=== PATIENT | female | born 1955 | race Asian ===

== ENCOUNTER 2021-05-04 09:04 | Outpatient (REF) | payer OTHER, SELFPAY ==
[2021-05-04 10:20] LABS: MANUAL DIFF FLAG NO
[2021-05-04 10:27] LABS: Basophils Percent Auto 0.5 % (0-2); Eosinophils Absolute Auto 0.2 X10*3/uL (0.0-0.4); Eosinophils Percent Auto 2.6 % (0-4); Hematocrit 41.4 % (37-47); Hemoglobin 14.2 g/dl (12.0-16.0); Imm Gran Abs Auto 0.01 X10*3/uL (0.00-0.03); Imm Gran Pct Auto 0.2 % (0.0-0.4); Lymphocytes Absolute Auto 2.6 X10*3/uL (1.2-4.9); Lymphocytes Percent Auto 42.2 % (20-40); Mean Corpuscular HGB Conc 34.3 g/dl (31.0-35.0); Mean Corpuscular Hemoglobin 31.4 pg (27.0-33.0); Mean Corpuscular Volume 91.6 fL (80-98); Mean Platelet Volume 10.6 fL (9.4-12.3); Monocytes Absolute Auto 0.4 X10*3/uL (0.1-1.2); Monocytes Percent Auto 6.3 % (2-11); Neutrophils Absolute Auto 2.9 X10*3/uL (2.0-8.3); Neutrophils Percent Auto 48.2 % (45-73); Platelet Count 180 X10*3/uL (160-400); Red Blood Count 4.52 X10*6/uL (4.20-5.50); Red Cell Distribution Width 11.5 % (11.0-16.0); White Blood Count 6.1 X10*3/uL (4.8-10.8)
[2021-05-04 10:42] LABS: Anion Gap 13 (12-20); Blood Urea Nitrogen 10 mg/dL (9-16); Calcium 9.5 mg/dL (8.4-10.2); Carbon Dioxide 27 mmol/L (22-29); Chloride 103 mmol/L (96-108); Cholesterol 235 mg/dL; Estimated Glomerular Filt Rate > 60; Glucose Fasting 113 mg/dL (60-99); HDL Cholesterol 44 mg/dL; Potassium 4.6 mmol/L (3.3-5.1); Sodium 138 mmol/L (135-145); Triglycerides 538 mg/dL
== END 2021-05-04 09:05 | disposition home or self-care (01) ==
LOC: HO.10HDL 09:04
PROVIDERS: Visit Provider Internal Medicine
DX: E78.00 Pure hypercholesterolemia, unspecified (principal); R03.0 Elevated blood-pressure reading, without diagnosis of hypertension
CPT/HCPCS: 36415; 80048; 80061; 85025

== ENCOUNTER 2021-08-10 11:25 | Outpatient (REF) | payer OTHER, SELFPAY ==
[2021-08-10 13:53] LABS: Alanine Aminotransferase 41 U/L (0-31); Albumin Level 4.4 g/dL (3.5-5.0); Alkaline Phosphatase 108 U/L (39-117); Anion Gap 12 (12-20); Aspartate Amino Transferase 26 U/L (5-31); Bilirubin Total 1.2 mg/dL (0.0-1.0); Blood Urea Nitrogen 10 mg/dL (9-16); Calcium 9.5 mg/dL (8.4-10.2); Carbon Dioxide 29 mmol/L (22-29); Chloride 103 mmol/L (96-108); Cholesterol 179 mg/dL; Estimated Glomerular Filt Rate > 60; Glucose Fasting 119 mg/dL (60-99); HDL Cholesterol 49 mg/dL; LDL Cholesterol Calculated 96 mg/dl; Potassium 4.3 mmol/L (3.3-5.1); Sodium 140 mmol/L (135-145); Total Protein 7.5 g/dL (6.5-8.0); Triglycerides 172 mg/dL
== END 2021-08-10 11:26 | disposition home or self-care (01) ==
LOC: HO.10HDL 11:25
PROVIDERS: Visit Provider Internal Medicine
DX: E78.5 Hyperlipidemia, unspecified (principal)
CPT/HCPCS: 36415; 80053; 80061; 82550; 83735

== ENCOUNTER 2021-08-13 10:16 | Outpatient (REF) | payer OTHER, SELFPAY ==
--- NOTE | ~2021-08-13 | XR_ITS ---
EXAMINATION: XR CERVICAL SPINE CLINICAL INFORMATION: Right-sided neck pain. Evaluate for osteoarthritis, degenerative disc disease. COMPARISON: None. TECHNIQUE: AP, lateral, open-mouth, bilateral oblique views of the cervical spine. FINDINGS: Mild reversal of the normal cervical lordosis. Grade 1 retrolisthesis of C4 on C5. No acute fracture. No loss of vertebral body height. Loss of intervertebral disc height with endplate osteophytes at C3-C7. Mild multilevel bilateral neural foraminal stenosis. Normal atlantoaxial alignment. Unremarkable prevertebral soft tissues. No abnormal soft tissue calcification. XR/XR cervical spine min 6V IMPRESSION: Mild reversal of the normal cervical lordosis, which may be positional or related to muscular spasm. Grade 1 retrolisthesis of C4 on C5. Moderate multilevel degenerative disc disease at C3-C7 with bilateral neural foraminal stenosis.
== END 2021-08-13 10:17 | disposition home or self-care (01) ==
LOC: HO.XRAY 10:16
PROVIDERS: PCP Internal Medicine; Visit Provider Internal Medicine
DX: M54.2 Cervicalgia (principal)
CPT/HCPCS: 72052

== ENCOUNTER 2022-05-10 13:14 | Outpatient (REF) | payer OTHER, SELFPAY ==
[2022-05-10 13:58] LABS: Influenza A PCR NEGATIVE (Negative); Influenza B PCR NEGATIVE (Negative); Resp Syncy Virus RNA Qual PCR NEGATIVE (Negative); SARS COV2 PCR INHOUSE NEGATIVE (Negative)
== END 2022-05-10 13:15 | disposition home or self-care (01) ==
LOC: HO.LNP 13:14
PROVIDERS: Visit Provider Internal Medicine
DX: Z20.822 Contact with and (suspected) exposure to COVID-19 (principal); R05.9 Cough, unspecified; J02.9 Acute pharyngitis, unspecified; R51.9 Headache, unspecified
CPT/HCPCS: 0241U

== ENCOUNTER 2022-10-15 07:35 | Outpatient (REF) | payer OTHER, SELFPAY ==
[2022-10-15 10:29] LABS: MANUAL DIFF FLAG NO
[2022-10-15 10:42] LABS: Basophils Percent Auto 0.4 % (0-2); Eosinophils Absolute Auto 0.2 X10*3/uL (0.0-0.4); Eosinophils Percent Auto 2.4 % (0-4); Hemoglobin 13.2 g/dl (12.0-16.0); Imm Gran Abs Auto 0.02 X10*3/uL (0.00-0.03); Imm Gran Pct Auto 0.3 % (0.0-0.4); Lymphocytes Absolute Auto 3.9 X10*3/uL (1.2-4.9); Mean Corpuscular HGB Conc 33.8 g/dl (31.0-35.0); Mean Corpuscular Hemoglobin 31.3 pg (27.0-33.0); Mean Corpuscular Volume 92.4 fL (80.0-98.0); Mean Platelet Volume 10.8 fL (9.4-12.3); Monocytes Absolute Auto 0.5 X10*3/uL (0.1-1.2); Monocytes Percent Auto 6.2 % (2-11); Neutrophils Percent Auto 39.7 % (45-73); Platelet Count 184 X10*3/uL (160-400); Red Blood Count 4.22 X10*6/uL (4.20-5.50); Red Cell Distribution Width 11.7 % (11.0-16.0); White Blood Count 7.6 X10*3/uL (4.8-10.8)
[2022-10-15 11:04] LABS: Alanine Aminotransferase 30 U/L (0-31); Albumin Level 4.2 g/dL (3.5-5.0); Alkaline Phosphatase 100 U/L (39-117); Anion Gap 11 (12-20); Aspartate Amino Transferase 27 U/L (5-31); Bilirubin Total 0.6 mg/dL (0.0-1.0); Blood Urea Nitrogen 13 mg/dL (9-16); Calcium 9.3 mg/dL (8.4-10.2); Carbon Dioxide 27 mmol/L (22-29); Chloride 104 mmol/L (96-108); Cholesterol 174 mg/dL; Estimated Glomerular Filt Rate > 60; Glucose Fasting 101 mg/dL (60-99); HDL Cholesterol 47 mg/dL; LDL Cholesterol Calculated 96 mg/dl; Potassium 3.9 mmol/L (3.3-5.1); Sodium 138 mmol/L (135-145); Triglycerides 157 mg/dL
== END 2022-10-15 07:36 | disposition home or self-care (01) ==
LOC: HO.10HDL 07:35
PROVIDERS: Visit Provider Internal Medicine
DX: E78.00 Pure hypercholesterolemia, unspecified (principal); I10 Essential (primary) hypertension
CPT/HCPCS: 36415; 80053; 80061; 85025

== ENCOUNTER 2023-05-30 09:36 | Day surgery (SDC) | payer OTHER, SELFPAY ==
--- NOTE | 2023-05-29 10:01 | P.CONAN_ITS ---
Documented by User: Avril Xiong NP 05/29/23 10:01 HPI - Anesthesia Eval Consult details Narrative: 68yo F for Colonoscopy [facility] Past Medical History Medical History (Updated 05/29/23 @ 06:42 by Kyleigh Giron RN) HTN (hypertension) Hyperlipemia Small bowel obstruction Surgical History Surgical History (Updated 05/29/23 @ 06:42 by Kyleigh Giron RN) Hx of section Hx of colonoscopy Hx of exploratory laparotomy Social History Social History Patient Tobacco Use Status: Former Tobacco user Quit Date: long time ago Use of substances other than those prescribed or required for medical reasons: No Are you DNR?: No Advance Directives: No Advance Directives Information Provided: Yes Meds Allergies Allergy/AdvReac Type Severity Reaction Status Date / Time No Known Allergies Allergy Unverified 06/29/20 15:35 Home Medications Medication Instructions Recorded Confirmed Last Taken Type amlodipine 2.5 mg tablet 2.5 mg PO DAILY 05/29/23 05/29/23 Unknown History atorvastatin 20 mg tablet 20 mg PO QPM 05/29/23 05/29/23 Unknown History Exam Exam Date and Time: May 29, 2023 1001 Assessment and Plan Assessment Anesthesia Assessment: Chart Reviewed Documented by User: Valeriano Vega MD 05/30/23 09:59 [facility] Past Medical History Medical History (Updated 05/29/23 @ 06:42 by Kyleigh Giron RN) HTN (hypertension) Hyperlipemia Small bowel obstruction Family History Family history of problems with anesthesia: No Surgical History Surgical History (Updated 05/29/23 @ 06:42 by Kyleigh Giron RN) Hx of section Hx of colonoscopy Hx of exploratory laparotomy History of Problems with Anesthesia: No Social History Social History Patient Tobacco Use Status: Former Tobacco user Quit Date: long time ago Use of substances other than those prescribed or required for medical reasons: No Are you DNR?: No Advance Directives: No Advance Directives Information Provided: Yes Meds Allergies Allergy/AdvReac Type Severity Reaction Status Date / Time No Known Allergies Allergy Unverified 06/29/20 15:35 Home Medications Medication Instructions Recorded Confirmed Last Taken Type amlodipine 2.5 mg tablet 2.5 mg PO DAILY 05/29/23 05/29/23 Unknown History atorvastatin 20 mg tablet 20 mg PO QPM 05/29/23 05/29/23 Unknown History Exam Airway Mallampati Class: II TM Dist: >3cm Neck ROM: Full Heart: rrr Lungs: cta Assessment and Plan Assessment Anesthesia Assessment: Anesthesia Plan Discussed Final Anesthetic Review Family History of Problems with Anesthesia: No History of Problems with Anesthesia: No NPO: Yes ASA Class: II Final Preanesthetic Review: No Changes in Pt Med Stat, Meds/Allgs Chart Reviewed, Consent Obtained/Reviewed and Anes Risks/Benef Reviewed Patient Risk: Low Procedure Risk: Low Anesthetic Plan Anesthetic Plan: MAC: Disposition: Standard PACU
[2023-05-30 09:46] VITALS: BP 132/80; PULSE 101; RESP 18; TEMP 36.6; O2SAT 98; BMI 26.5
[2023-05-30 09:52] VITALS: BMI 26.5
[2023-05-30] MEDS: Lactated Ringers 1,000 ML 100 ML IVCONT (10:09)
[2023-05-30 11:56] VITALS: BP 85/41; PULSE 88; RESP 16; TEMP 36.9; O2SAT 96
--- NOTE | 2023-05-30 12:00 | PM.OP ---
Brief Operative Note Date of Service: 05/30/23 Pre-op diagnosis: + Cologuard test Post-op diagnosis: other (Diverticulosis) Procedure: Colonoscopy to the cecum and TI Surgeon: Sergio Ng Anesthesia: MAC Was an Territory Manager General Sales used for this Procedure?: No Estimated blood loss (mL): 0 Pathology: none sent Condition: stable Disposition: PACU
[2023-05-30 12:12] VITALS: BP 105/60; PULSE 85; RESP 16; TEMP 36.9; O2SAT 96
--- NOTE | 2023-05-30 12:18 | OP_ITS ---
DATE OF SERVICE: 05/30/2023 SURGEON: Sergio Ng MD INDICATIONS: Patient presents for evaluation of a positive Cologuard test. Full consent obtained from her for this, including risks of bleeding and perforation. PREOPERATIVE DIAGNOSIS: Positive Cologuard test. POSTOPERATIVE DIAGNOSIS: PROCEDURE PERFORMED: Colonoscopy to the cecum and terminal ileum. ESTIMATED BLOOD LOSS: COMPLICATIONS: ANESTHESIA: Monitored anesthesia care. ASSISTANTS: SPECIMENS: POSTOPERATIVE DIAGNOSES: Positive Cologuard test, diverticulosis, internal hemorrhoids. DESCRIPTION OF PROCEDURE: The patient was placed in the left lateral decubitus position. The digital rectal exam revealed no abnormalities. The Olympus video pediatric colonoscope was entered into the rectum and advanced easily to the cecum. Once in the cecum, I did identify normal-appearing cecal pouch with appendiceal orifice and normal-appearing ileocecal valve. The terminal ileum was cannulated and appeared normal. The scope was withdrawn back in the colon. The entire cecum and ileocecal valve appeared normal. The scope was slowly withdrawn assessing all mucosal surfaces carefully. Preparation was excellent. I did not visualize any sign of polyps, colitis, nor angiodysplasia. There was a mild amount of sigmoid diverticulosis. In the rectum, scope was retroflexed visualizing internal hemorrhoids, but no other pathology. The rectal mucosa appeared normal. The scope was straightened and withdrawn from the patient. She tolerated the procedure well and was returned to the recovery area in stable condition. IMPRESSION: 1. Mild sigmoid diverticulosis. 2. Small internal hemorrhoids. PLAN: Given the negative exam, I would recommend a repeat colonoscopy in 10 years for further screening. She will otherwise see me on a p.r.n. basis. Sergio Ng MD RMAwilda/CONCEPCIONL / [id number] MTDD
== END 2023-05-30 12:35 | disposition home or self-care (01) ==
PROVIDERS: PCP Internal Medicine; Visit Provider Internal Medicine
PROC: 0DJD8ZZ Inspection of Lower Intestinal Tract, Via Natural or Artificial Opening Endoscopic (ICD-10-PCS; CPT 45378; principal; 2023-05-30 11:00)
DX: R19.5 Other fecal abnormalities (principal); K57.30 Diverticulosis of large intestine without perforation or abscess without bleeding; K64.8 Other hemorrhoids; I10 Essential (primary) hypertension; E78.5 Hyperlipidemia, unspecified; Z79.899 Other long term (current) drug therapy
CPT/HCPCS: 45378

== ENCOUNTER 2023-08-19 08:01 | Outpatient (REF) | payer OTHER, SELFPAY ==
--- NOTE | ~2023-08-19 | MM_ITS ---
EXAMINATION: MM SCREENING DIGITAL BREAST TOMOSYNTHESIS, BILATERAL CLINICAL INFORMATION: Screening. Asymptomatic. COMPARISON: Mammography: This study is compared with prior exams dating back to 2016. TECHNIQUE: Digital breast tomosynthesis is performed in both the craniocaudal and mediolateral oblique views along with computer-aided detection (CAD). Synthesized 2D images are generated from the tomosynthesis. FINDINGS: The breasts are heterogeneously dense, which may obscure small masses (ACR BI-RADS breast composition Category c). There are no significant masses, abnormal calcifications, or other abnormalities. MM/MM tomosynthesis screening BI IMPRESSION: No mammographic evidence of malignancy. ASSESSMENT: BI-RADS BI-RADS 1 - Negative RECOMMENDATION: Routine annual mammography screening. 1 year F/U This examination should not preclude the clinical evaluation of a suspicious palpable abnormality. This patient's information was entered into a reminder system with a target due date for their next mammogram.
== END 2023-08-19 08:02 | disposition home or self-care (01) ==
LOC: HO.MAMMO 08:01
PROVIDERS: PCP Internal Medicine; Visit Provider Internal Medicine
DX: Z12.31 Encounter for screening mammogram for malignant neoplasm of breast (principal)
CPT/HCPCS: 77063; 77067

== ENCOUNTER → 2023-08-19 08:30 | Outpatient (BNV) | payer OTHER, SELFPAY | PROVIDERS: PCP Internal Medicine; Visit Provider Radiology Diagnostic Radiology | DX: Z12.31 Encounter for screening mammogram for malignant neoplasm of breast (principal) | CPT/HCPCS: 77063; 77067 ==

== ENCOUNTER 2023-09-25 08:14 | Outpatient (REF) | payer OTHER, SELFPAY ==
[2023-09-25 10:22] LABS: MANUAL DIFF FLAG NO
[2023-09-25 10:27] LABS: Basophils Percent Auto 0.5 % (0-2); Eosinophils Absolute Auto 0.2 X10*3/uL (0.0-0.4); Eosinophils Percent Auto 2.7 % (0-4); Hematocrit 44.6 % (37.0-47.0); Hemoglobin 15.5 g/dl (12.0-16.0); Imm Gran Abs Auto 0.01 X10*3/uL (0.00-0.03); Imm Gran Pct Auto 0.2 % (0.0-0.4); Lymphocytes Absolute Auto 2.8 X10*3/uL (1.2-4.9); Lymphocytes Percent Auto 44.2 % (20-40); Mean Corpuscular HGB Conc 34.8 g/dl (31.0-35.0); Mean Corpuscular Hemoglobin 31.8 pg (27.0-33.0); Mean Corpuscular Volume 91.4 fL (80.0-98.0); Mean Platelet Volume 10.8 fL (9.4-12.3); Monocytes Absolute Auto 0.4 X10*3/uL (0.1-1.2); Monocytes Percent Auto 5.5 % (2-11); Neutrophils Percent Auto 46.9 % (45-73); Platelet Count 176 X10*3/uL (160-400); Red Blood Count 4.88 X10*6/uL (4.20-5.50); Red Cell Distribution Width 11.3 % (11.0-16.0); White Blood Count 6.4 X10*3/uL (4.8-10.8)
[2023-09-25 10:37] LABS: Alanine Aminotransferase 41 U/L (0-31); Albumin Level 4.4 g/dL (3.5-5.0); Alkaline Phosphatase 110 U/L (39-117); Anion Gap 13 (12-20); Aspartate Amino Transferase 29 U/L (5-31); Bilirubin Total 0.6 mg/dL (0.0-1.0); Blood Urea Nitrogen 15 mg/dL (9-16); Calcium 9.8 mg/dL (8.4-10.2); Carbon Dioxide 28 mmol/L (22-29); Chloride 100 mmol/L (96-108); Cholesterol 203 mg/dL (<200); Estimated Glomerular Filt Rate > 60; Glucose Fasting 120 mg/dL (60-99); HDL Cholesterol 53 mg/dL (>40); LDL Cholesterol Calculated 87 mg/dL (<100); Potassium 4.1 mmol/L (3.3-5.1); Sodium 137 mmol/L (135-145); Total Protein 8.1 g/dL (6.5-8.0); Triglycerides 319 mg/dL (<150)
== END 2023-09-25 08:15 | disposition home or self-care (01) ==
LOC: HO.10HDL 08:14
PROVIDERS: Visit Provider Internal Medicine
DX: I10 Essential (primary) hypertension (principal); E78.00 Pure hypercholesterolemia, unspecified
CPT/HCPCS: 36415; 80053; 80061; 85025

== ENCOUNTER 2024-01-05 12:03 | Outpatient (REF) | payer OTHER, SELFPAY ==
[2024-01-05 14:35] LABS: Creatinine Urine 143.14 mg/dL; Microalbum/Creatinine Ratio Ur 13.2 ug/mg cr (<30)
[2024-01-05 14:39] LABS: Anion Gap 13 (12-20); Blood Urea Nitrogen 15 mg/dL (9-16); Calcium 9.4 mg/dL (8.4-10.2); Carbon Dioxide 28 mmol/L (22-29); Chloride 104 mmol/L (96-108); Cholesterol 194 mg/dL (<200); Estimated Glomerular Filt Rate > 60; Glucose Fasting 139 mg/dL (60-99); HDL Cholesterol 52 mg/dL (>40); LDL Cholesterol Calculated 93 mg/dL (<100); Potassium 4.4 mmol/L (3.3-5.1); Sodium 141 mmol/L (135-145); Triglycerides 245 mg/dL (<150)
[2024-01-05 14:57] LABS: Estimated Average Glucose 128 mg/dL; Hemoglobin A1c % 6.1 % (<6.0)
== END 2024-01-05 12:04 | disposition home or self-care (01) ==
LOC: HO.10HDL 12:03
PROVIDERS: Visit Provider Internal Medicine
DX: R73.03 Prediabetes (principal); I10 Essential (primary) hypertension; E78.5 Hyperlipidemia, unspecified
CPT/HCPCS: 36415; 80048; 80061; 82043; 82570; 83036

== ENCOUNTER 2024-03-29 11:41 | Outpatient (REF) | payer OTHER, SELFPAY ==
[2024-03-29 13:54] LABS: Estimated Average Glucose 126 mg/dL
[2024-03-29 14:11] LABS: Alanine Aminotransferase 37 U/L (0-31); Albumin Level 4.2 g/dL (3.5-5.0); Alkaline Phosphatase 102 U/L (39-117); Anion Gap 12 (12-20); Aspartate Amino Transferase 29 U/L (5-31); Bilirubin Total 0.8 mg/dL (0.0-1.0); Blood Urea Nitrogen 8 mg/dL (9-16); Calcium 9.5 mg/dL (8.4-10.2); Carbon Dioxide 26 mmol/L (22-29); Chloride 105 mmol/L (96-108); Cholesterol 205 mg/dL (<200); Estimated Glomerular Filt Rate > 60; Free T4 (Free Thyroxine) 0.67 ng/dL (0.71-1.85); Glucose Fasting 116 mg/dL (60-99); HDL Cholesterol 41 mg/dL (>40); LDL Cholesterol Calculated 85 mg/dL (<100); Potassium 4.3 mmol/L (3.3-5.1); Sodium 139 mmol/L (135-145); Thyroid Stimulating Hormone 2.72 uIU/mL (0.32-4.0); Total Protein 7.6 g/dL (6.5-8.0); Triglycerides 399 mg/dL (<150)
== END 2024-03-29 11:42 | disposition home or self-care (01) ==
LOC: HO.10HDL 11:41
PROVIDERS: Visit Provider Internal Medicine
DX: I10 Essential (primary) hypertension (principal); R73.03 Prediabetes; E78.5 Hyperlipidemia, unspecified
CPT/HCPCS: 36415; 80053; 80061; 83036; 84439; 84443

== ENCOUNTER 2024-07-16 10:42 | Outpatient (REF) | payer MEDICARE, SELFPAY ==
[2024-07-16 14:08] LABS: Cholesterol 147 mg/dL (<200); HDL Cholesterol 40 mg/dL (>40); Triglycerides 422 mg/dL (<150)
== END 2024-07-16 10:43 | disposition home or self-care (01) ==
LOC: HO.10HDL 10:42
PROVIDERS: Visit Provider Internal Medicine
DX: E78.00 Pure hypercholesterolemia, unspecified (principal)
CPT/HCPCS: 36415; 80061

== ENCOUNTER 2024-08-24 07:57 | Outpatient (REF) | payer MEDICARE, SELFPAY ==
--- NOTE | ~2024-08-24 | MM_ITS ---
EXAMINATION: MM SCREENING DIGITAL BREAST TOMOSYNTHESIS, BILATERAL CLINICAL INFORMATION: Screening. Asymptomatic. COMPARISON: Mammography: Comparison is made with available priors TECHNIQUE: Digital breast mammography with tomosynthesis is performed in both the craniocaudal and mediolateral oblique views along with computer-aided detection (CAD). FINDINGS: The breasts are heterogeneously dense, which may obscure small masses (ACR BI-RADS breast composition Category c). There are no significant masses, abnormal calcifications, or other abnormalities. MM/MM tomosynthesis screening BI IMPRESSION: No mammographic evidence of malignancy. ASSESSMENT: BI-RADS BI-RADS 1 - Negative RECOMMENDATION: Routine annual mammography screening. 1 year F/U This examination should not preclude the clinical evaluation of a suspicious palpable abnormality. This patient's information was entered into a reminder system with a target due date for their next mammogram. Electronically signed by: Nichelle Still DO 09/01/2024 12:28 PM LOUISA
== END 2024-08-24 07:58 | disposition home or self-care (01) ==
LOC: HO.MAMMO 07:57
PROVIDERS: PCP Internal Medicine; Visit Provider Internal Medicine
DX: Z12.31 Encounter for screening mammogram for malignant neoplasm of breast (principal)
CPT/HCPCS: 77063; 77067

== ENCOUNTER → 2024-08-24 08:30 | Outpatient (BNV) | payer MEDICARE, SELFPAY | PROVIDERS: PCP Internal Medicine; Visit Provider Internal Medicine | DX: Z12.31 Encounter for screening mammogram for malignant neoplasm of breast (principal) | CPT/HCPCS: 77063; 77067 ==

== ENCOUNTER 2024-12-15 10:51 | Outpatient (REF) | payer MEDICARE, SELFPAY ==
--- OUTSIDE RECORDS SUMMARY | 2024-12-15 13:03 | XMS_ITS | Patient Health Record ---
Author Organization [facility] Address [address] [place] [address] Care Team Providers Care Computer Publisher Name Role Phone Robert Schulz MD Primary Care Provider Sergio Cornelius Unavailable [phone] Allergies No Known Allergies Reason For Referral No Information Medications Medication SIG (Take, Route, Frequency, Duration) Notes Start Date End Date Status Senna 8.6 MG 2 tablets at bedtime as needed Orally Once a day Active Atorvastatin Calcium 20 MG 1 tablet Oral ly Once a day for 30 day(s) Active amLODIPine Besylate 2.5 MG 1 tablet Oral ly Once a day for 30 day(s) Active Immunizations Vaccine Route Administration Date Status Comme nts Influenza Unknown 07/30/2022 Administered Social History Tobacco Use: Social History Observation Description Date Details (start date - stop date) Never Smoker NA - NA Tobacco Use/Smoking Question Answer Notes Patient is a nonsmoker Alcohol Screen Question Answer Notes Did you have a drink containing alcohol in the p ast year? No Points 0 Interpretation Negative Section Notes: Came from [facility] in [facility] Nonsmoker; no alcohol Problems Problem Type SNOMED Code ICD Code Onset Dates Problem Status W/U Status Risk Notes Problem Diverticulosis of colon (379801458) Diverticulosis of colon (K57.30) Active confirmed Problem 401092877 Positive colorectal cancer screening using Cologuard test (R19.5) Active confirmed Plan Of Treatment Future Test Test Name Order Date COLONOSCOPY 04/03/2023 Insurance Providers Payer Name Payer Address Payer Phone Subscriber Number Group Number Insured Name Patient Relationship to Insured Coverage Start Date Coverage End Date [facility] [address] [place] [address] [id number] [employer] Self - patient is the insured Medical (General) History Medical History History ICD Code HTN Hyperlipidemia She reports a negative colonoscopy > [address] Reynoso Denies [place],DM,CVA,Lung disease,renal dise ase Surgical History Surgery Date(Month/Year) 2 C-sections Exploratory for SBO
[2024-12-15 13:39] LABS: Cholesterol 186 mg/dL (<200); HDL Cholesterol 56 mg/dL (>40); LDL Cholesterol Calculated 111 mg/dL (<100); Triglycerides 96 mg/dL (<150)
== END 2024-12-15 10:52 | disposition home or self-care (01) ==
LOC: HO.10HDL 10:51
PROVIDERS: Visit Provider Internal Medicine
DX: E78.5 Hyperlipidemia, unspecified (principal)
CPT/HCPCS: 36415; 80061

== ENCOUNTER 2025-03-08 13:40 | Outpatient (AMB) | payer MEDICARE, SELFPAY ==
--- NOTE | 2025-03-08 13:38 | A.OFFPC_ITS ---
Vital Signs 03/08/25 13:49 03/08/25 14:28 Height 5 ft 3 in BP 150/78 H 138/86 Pulse 110 H 96 Temp 97.4 F Temp Source Temporal Artery Scan Pulse Oximetry (%) 95 Oxygen Delivery Method Room Air Intake Visit Reasons: Routine Shipping Clerk Crating Required: No Accompanied by: Self / Same As Patient Allergies No Known Allergies Allergy (Verified 03/08/25 13:47) Medication List - Last Reconciled 03/08/25 by KUSHAL Caal amlodipine 2.5 mg PO DAILY atorvastatin 20 mg PO QPM fenofibrate 160 mg PO DAILY zolpidem 5 mg PO BEDTIME PRN HPI HPI Comments History of Present Illness Details 61-year-old female with history of hyper tension, hyperlipidemia, prediabetes presents to the office for management of chronic conditions and to establish care. Pre diabetes-last hemoglobin A1c 6.0% in 03/2024. Requires updated testing Hypertension-blood pressure initially 150/78, on repeat . Compliant with amlodipine 2.5 mg daily, except did not take today Hyperlipidemia-lipid panel completed 12/2024. LDL 111. Total cholesterol 186. Compliant with fenofibrate 160 mg daily Insomnia-controlled with zolpidem Last colonoscopy-05/2023. Ten year follow-up advised Last mammogram-08/2024. No malignancy detected Last DEXA scan-overdue ROS: General: No fevers, malaise, unintentional weight loss HEENT: No blurred vision, diplopia. No sore throat, nasal congestion, rhinorrhea, sinus pain, ear pain Cardiovascular: No chest pain, palpitations, or leg edema Respiratory: No shortness of breath, wheezing, cough Neuro: No headaches, weakness, paresthesias Skin: No rashes or lesions EXAM: Constitutional - Awake and Alert, No apparent distress Eyes - PERRLA, EOMI Cardiovascular - S1S2, RRR, No edema Respiratory - Normal lung expansion, Normal respiratory effort, No respiratory distress, CTA bilaterally Extremities - no calf tenderness bilaterally, no swelling Skin - Warm/Dry Neurological - Alert & oriented x3 Psychological - Appropriate affect [facility] Medical History (Updated 03/08/25 @ 13:41 by KUSHAL Caal) Insomnia Prediabetes Small bowel obstruction Hyperlipemia HTN (hypertension) Surgical History (Updated 05/29/23 @ 06:42 by Kyleigh Giron RN) Hx of section Hx of colonoscopy Hx of exploratory laparotomy Social History Patient Tobacco Use Status: Former Tobacco user Questionnaire PHQ-9 Over the last 2 weeks, how often have you been bothered by any of the following problems? 1. Little interest or pleasure in doing things: several days 2. Feeling down, depressed, or hopeless: several days 3. Trouble falling or staying asleep, or sleeping too much: several days 4. Feeling tired or having little energy: not at all 5. Poor appetite or overeating: not at all 6. Feeling bad about yourself - or that you are a failure or have let yourself or your family down: more than half the days 7. Trouble concentrating on things, such as reading the newspaper or watching television: not at all 8. Moving or speaking so slowly that other people could have noticed. Or the opposite - being so fidgety or restless that you have been moving around a lot more than usual: several days 9. Thoughts that you would be better off or of hurting yourself in some way: not at all Total score: 6 Source: Developed by Drs. Sergio Saleem, Shae Friend, Donald Tellez and colleagues, with an educational rickey from [employer]. Thrive Questionnaire I am a: Patient What is your living situation today?: I have a steady place to live Within the past 12 months, did the food you bought not last and you didn't have the money to get more?: Never true Within the past 12 months, did you worry whether your food would run out before you got money to buy more?: Never true Do you have trouble paying for medicines?: No Do you have trouble getting transportation to medical appointments?: No Do you have trouble paying your heating and electricity bill?: No Do you have trouble taking care of your child, family member or friend?: No Do you have trouble with day-to-day activities such as bathing, preparing meals, shopping, managing finances, etc.?: No Are you currently unemployed and looking for a job?: No Are you interested in more education?: No Please select the resources that you would like help with: None THRIVE Score: 0 SULAIMAN-7 AMB Questionnaire SULAIMAN-7 Feeling nervous, anxious, or on edge: 0 = Not at all Not being able to stop or control worryin = Not at all Worrying too much about different things: 0 = Not at all Trouble relaxin = Not at all Being so restless that it is hard to sit still: 0 = Not at all Becoming easily annoyed or irritable: 1 = Several days Feeling afraid as if something awful might happen: 0 = Not at all Total SULAIMAN-7 score (0-4 normal; 5-9 mild; 10-14 moderate; 15-21 severe): 1 Source: Developed by Drs. Sergio Saleem, Shae Friend, Donald Tellez and colleagues, with an educational rickey from [employer]. Physical exam (Primary Care) Vital Signs: Last Vital Signs Temp 97.4 F 03/08/25 13:49 Pulse 96 03/08/25 14:28 BP 138/86 03/08/25 14:28 Pulse Ox 95 03/08/25 13:49 Oxygen Delivery Method Room Air 03/08/25 13:49 Tobacco/Smoking Status: Tobacco use Status Patient Tobacco Use Status Former Tobacco user 03/08/25 13:39 PHQ-9: PHQ-9 Score PHQ-9: Total score 6 03/08/25 14:29 Coding Level of Care Code New Pt Level 4 (91109) Complex EM visit Add On G2211 Diagnoses Prediabetes R73.03 HTN (hypertension) I10 Hyperlipemia E78.5 Assessment & Plan Assessment & Plan (1) Prediabetes: Code(s): R73.03 - Prediabetes Category: Medical Plan: Last hemoglobin A1c 6.0%, repeat ordered. She is counseled on healthy diet low in refined sugars and carbohydrates. Diet has predominance of rice. Recommend regular exercise. (2) HTN (hypertension): Code(s): I10 - Essential (primary) hypertension Category: Medical Plan: Blood pressure controlled, but borderline, on recheck with blood pressure 138/86. She will continue amlodipine 2.5 mg daily. Did not take her medication this morning, educated noncompliance. Low-sodium diet. (3) Hyperlipemia: Code(s): E78.5 - Hyperlipidemia, unspecified Category: Medical Plan: Lipid panel reviewed. LDL 111, goal less than 110. Advised to resume a torvastatin 20 mg daily. Continue fenofibrate 160 mg daily. Recommend diet low in saturated foods and highly processed wheels. Recommend regular exercise. Plan Follow-up in the office in 6 months. Labs to be completed today as well as prior to next office visit. She is referred for DEXA scan. Continue medications as prescribed, educated on compliance importance Orders: Orders Basic Metabolic Panel Today R79.89 - Other specified abnormal findings of blood chemistry Hemoglobin A1c Today R79.89 - Other specified abnormal findings of blood chemistry TSH reflex Free T4 Today R79.89 - Other specified abnormal findings of blood chemistry XR DEXA appendicular skeleton Today Z78.0 - Asymptomatic menopausal state Lipid Panel 6 Months E78.5 - Hyperlipidemia, unspecified, I10 - Essential (primary) hypertension, R73.03 - Prediabetes Hemoglobin A1c 6 Months E78.5 - Hyperlipidemia, unspecified, I10 - Essential (primary) hypertension, R73.03 - Prediabetes Basic Metabolic Panel 6 Months E78.5 - Hyperlipidemia, unspecified, I10 - Essential (primary) hypertension, R73.03 - Prediabetes Medications: New fenofibrate 160 mg PO DAILY 90 tabs 1RF zolpidem 5 mg PO BEDTIME PRN 30 tabs 0RF insomnia amlodipine 2.5 mg PO DAILY 90 tabs 1RF atorvastatin 20 mg PO QPM 90 tabs 1RF
[2025-03-08 13:49] VITALS: BP 150/78; PULSE 110; TEMP 36.3; O2SAT 95
--- OUTSIDE RECORDS SUMMARY | 2025-03-08 13:53 | XMS_ITS | Patient Health Record ---
Author Organization [facility] Address [address] [place] [address] Care Team Providers Care Garment Sewer Hand Name Role Phone Robert Schulz MD Primary Care Provider Sergio Cornelius Unavailable [phone] Allergies No Known Allergies Reason For Referral [...] Interpretation Negative Section Notes: Came from [facility] in [facility] Nonsmoker; no alcohol Problems Problem Type SNOMED Code ICD Code Onset Dates Problem Status W/U Status Risk Notes Problem Diverticulosis o f colon (K57.30) Active confirmed Problem 366935188 Positive colorec franc cancer screening using Cologuard test (R19.5) Active confirmed Plan Of Treatment Future Test Test Name Order Date COLONOSCOPY 04/03/2023 Insurance Providers Payer Name Payer Address Payer Phone Subscriber Number Group Number Insured Name Patient Relationship to Insured Coverage Start Date Coverage End Date [facility] [address] [place] [phone] [id number] [employer] Self - patient is the insured Medical (General) History Medical History History ICD Code HTN Hyperlipidemia She reports a negative colonoscopy > [address] Reynoso Denies [place],DM,CVA,Lung disease,renal dise ase Surgical History Surgery Date(Month/Year) 2 C-sections Exploratory for SBO
[2025-03-08 14:28] VITALS: BP 138/86; PULSE 96
== END 2025-03-08 14:11 | disposition home or self-care (01) ==
LOC: HO.HMCHD 13:41
PROVIDERS: PCP Internal Medicine; Visit Provider Physician Assistant
DX: R73.03 Prediabetes (principal); I10 Essential (primary) hypertension; E78.5 Hyperlipidemia, unspecified

== ENCOUNTER → 2025-03-08 13:40 | Outpatient (BNVA) | payer MEDICARE, SELFPAY | PROVIDERS: PCP Internal Medicine; Visit Provider Physician Assistant | DX: R73.03 Prediabetes (principal); I10 Essential (primary) hypertension; E78.5 Hyperlipidemia, unspecified; Z79.899 Other long term (current) drug therapy | CPT/HCPCS: 96127; 99202 ==

== ENCOUNTER 2025-05-06 13:44 | Outpatient (REF) | payer MEDICARE, SELFPAY ==
--- NOTE | ~2025-05-06 | MM_ITS ---
EXAMINATION: DXA BONE DENSITY AXIAL HISTORY: Z78.0 - Asymptomatic menopausal state TECHNIQUE: Consulted Dual energy absorptiometry (DEXA) of the lumbar spine, total left hip, and femoral neck was performed. COMPARISON: There are no prior studies for comparison. FINDINGS: The bone mineral density of the lumbar spine is 1.077 g/cm2, corresponding to a T-score of -0.9, and a Z-score of 0.7. This is indicative of normal bone mineral density. The bone mineral density of the left total hip is 0.922 g/cm2, corresponding to a T-score of -0.7, and a Z-score of 0.7. This is indicative of normal bone mineral density. The bone mineral density of the left femoral neck is 0.861 g/cm2, corresponding to a T-score of -1.3, and a Z-score of 0.3. This is indicative of osteopenia. FRACTURE RISK: The FRAX index suggests a risk of major osteoporotic fracture of 5.2%, and of hip fracture 0.6%. MM/XR DEXA axial skeleton IMPRESSION: Based on bone mineral density, and according to World Health Organization (WHO) criteria, the diagnosis is consistent with osteopenia. Statistically, 68% of repeat scans fall within 1 SD (+/- 0.010 g/cm2 for AP spine L1-L4) and 1 SD (+/- 0.012 g/cm2 for femur total) FRAX is a trademark of the [employer] [place] [employer] Metabolic [employer] Disease, a World Health Organization (WHO) Collaborating Center. Electronically signed by: Sergio Dudley MD 05/06/2025 03:04 PM EDT
--- OUTSIDE RECORDS SUMMARY | 2025-05-06 13:46 | XMS_ITS | Patient Health Record ---
Author Organization [facility] Address [address] [place] [address] Support Name Relationship Address Phone K[employer]HI[employer]EM[employer] Guarantor Unknown [phone] Reason For Referral No Information Medications Medication SIG (Take, Route, Fr equency, Duration) Notes Start Date End Date Status Vivelle-Dot 0.05MG Transdermal TWICE WE EKLY; Duration: -3 [facility] 12/10/2012 Active Vivelle 0.05MG SURENDRA Transdermal TWIC E WEEKLY; Duration: -3 [facility] 10/25/2011 Active Vit D ORAL; Duration: -3 [facility] 10/25/2011 Active Provera 2.5MG 1 ORAL daily; Duration: -3 [facility] 3 Active B-Complex ORAL; Duration: -3 [facility] 10/25/2011 Active Problems Problem Type SNOMED Code ICD Code Onset Dates Problem Status W/U Status Risk Notes Problem Menopausal symptom (26915448) Symptomatic menopausal or female climacteric states (627.2) Active confirmed Diag Problem Adhesive capsulitis of shoulder (374484558) Adhesive capsulitis of shoulder (726.0) Active confirmed Diag Problem Gynecological examination normal (446523892932741) Routine gynecological examination (V72.31) Active confirmed Major Problem Screening for malignant neoplasm of colon (778509172) Special screening for malignant neoplasms, colon (V76.51) Active confirmed Major Plan Of Treatment No Information Insurance Providers Payer Name Payer Address Payer Phone Subscriber Number Group Number Insured Name Patient Relationship to Insured Coverage Start Date Coverage End Date [facility] [address] [place] [address] [phone] [id number] K[employer]HI[employer] Self - patient is the insured
--- OUTSIDE RECORDS SUMMARY | 2025-05-06 13:46 | XMS_ITS | Patient Health Record ---
Author Organization [facility] Address [address] [place] [address] Care Team Providers Care Grants Administrator Name Role Phone Jazz (RETIRED) Robert HARRIS Primary Care Provide r Sergio Rodrigez Unavailable [phone] Allergies No Known Allergies Reason For Referral [...] Interpretation Negative Section Notes: Came from [facility] in [facility] Nonsmoker; no alcohol Problems Problem Type SNOMED Code ICD Code Onset Dates Problem Status W/U Status Risk Notes Problem Diverticulosis of colon (573416036) Diverticulosis of colon (K57.30) Active confirmed Problem 118951654 Positive colorectal cancer screening using Cologuard test (R19.5) Active confirmed Plan Of Treatment Future Test Test Name Order Date COLONOSCOPY 04/03/2023 Insurance Providers Payer Name Payer Address Payer Phone Subscriber Number Group Number Insured Name Patient Relationship to Insured Coverage Start Date Coverage End Date [facility] [address] [place] [phone] [id number] [employer] Self - patient is the insured Medical (General) History Medical History History ICD Code HTN Hyperlipidemia She reports a negative colonoscopy > [address] Reynoso Denies [place],DM,CVA,Lung disease,renal dise ase Surgical History Surgery Date(Month/Year) 2 C-sections Exploratory for SBO
== END 2025-05-06 13:45 | disposition home or self-care (01) ==
LOC: HO.MAMMO 13:44
PROVIDERS: PCP Physician Assistant; Visit Provider Physician Assistant
DX: Z13.820 Encounter for screening for osteoporosis (principal); Z78.0 Asymptomatic menopausal state
CPT/HCPCS: 77080

== ENCOUNTER → 2025-05-06 13:48 | Outpatient (BNV) | payer MEDICARE, SELFPAY | PROVIDERS: PCP Physician Assistant; Visit Provider Radiology Diagnostic Radiology | DX: E28.39 Other primary ovarian failure (principal) | CPT/HCPCS: 77080 ==

== ENCOUNTER 2025-06-25 13:18 | Outpatient (AMB) | payer MEDICARE, SELFPAY ==
[2025-06-25 13:20] VITALS: BP 150/90; PULSE 86; RESP 16; TEMP 36.7; O2SAT 98; BMI 25.9
--- NOTE | 2025-06-25 13:20 | AM.OFFWIN_ITS ---
Intake Vital Signs 06/25/25 13:20 Height 5 ft 3 in Weight 146 lb BMI 25.9 BP 150/90 H Blood Pressure Location Rt brachial Respiration 16 Pulse 86 Pulse Source Pulse Oximeter Temp 98.0 F Temp Source Oral Pulse Oximetry (%) 98 Oxygen Delivery Method Room Air Intake Visit Reasons: EP-Lt arm feeling heavy Intake Note: Pt is here today c/o bee sting last night on Lt arm red and swollen Patient Tobacco Use Status: Former Tobacco user Allergies No Known Allergies Allergy (Verified 03/08/25 13:47) HPI HPI Comments History of Present Illness Details This is a 70-year-old female with a past medical history of hypertension hyperlipidemia presenting for evaluation of a bee sting to her left forearm that happened this morning at approximately 9:00 a.m.. Patient states that she took 2 vbzo-cpr-rkyyxat Benadryl and used ice following the incident. Patient has no previous allergies to bee stings and denies having any shortness for breath, swelling of her tongue or lips, difficulty swallowing or shortness for breath. Patient comes today because she feels that her left forearm is ?heavy and tight?. [facility] Medical History (Updated 06/25/25 @ 13:44 by Bess Meza PA-C) Insomnia Prediabetes Small bowel obstruction Hyperlipemia HTN (hypertension) Surgical History (Updated 05/29/23 @ 06:42 by Kyleigh Giron RN) Hx of section Hx of colonoscopy Hx of exploratory laparotomy Social History Patient Tobacco Use Status: Former Tobacco user Review of Systems Const Reports no additional complaints, Denies body aches, Denies chills and Denies fever(s) Eyes Reports no additional complaints and Denies itchy eyes ENT Reports no additional complaints, Denies change in voice, Denies hoarseness, Denies lip swelling, Denies odynophagia, Denies throat swelling and Denies tongue swelling Card Denies chest pain and Denies dyspnea Resp Denies cough, Denies dyspnea, Denies stridor and Denies wheezing GI Denies odynophagia Musc Details: heaviness left forearm with swelling Skin/Breast Reports system reviewed and no additional complaints, except as documented Neuro Reports no additional complaints Psych Reports no additional complaints Aller/Immun Denies itchy eyes, Denies lip swelling, Denies throat swelling, Denies tongue swelling and Denies wheezing Physical Exam Vital Signs: Last Vital Signs Temp 98.0 F 06/25/25 13:20 Pulse 86 06/25/25 13:20 Resp 16 06/25/25 13:20 BP 150/90 H 06/25/25 13:20 Pulse Ox 98 06/25/25 13:20 Oxygen Delivery Method Room Air 06/25/25 13:20 BMI result Body Mass Index 25.9 Const General: cooperative, healthy appearing, comfortable, no acute distress, well developed, alert, awake, Physically active and anxious; No acute distress, in distress or ill appearing Nutritional Appearance: average body habitus Orientation/consciousness: patient oriented x3 Limitations: no limitations HEENT Head: Yes normal to inspection and Yes normocephalic Face and sinus: Yes normal facial exam Mouth: no drooling and other (Managing secretions, no overt edema of oral labia) Eyes General: appearance normal, both eyes and all related structures Skin Other: Mild erythema on the volar surface of the left forearm with minimal edema extending from the wrist to the left antecubital fossa, dermis is mildly warm to touch, two areas of puncture wound on volar surface, no evidence of a retained foreign body or localized discharge from these lesions. Passive ROM left wrist and left olecranon intact. Lesions: lesion noted Rashes: no rashes Trauma: no lacerations or abrasions Neuro General: patient oriented x3 Extrem Left upper extremity: full ROM (left olecranon, left wrist), edema (left forearm; no edema of hand or digits), no joint enlargement, elbow/forearm Details: tenderness, swelling, normal ROM, warmth and distal pulses intact (radial pulse intact LUE); no abrasions, no lacerations, no ecchymosis, no crepitus and no foreign bodies and wrist (passive ROM left wrist intact) Psych Appearance: grossly normal Mental Status: mental status grossly normal Affect: Anxious affect present Attitude: cooperative Insight: Good insight present (Psych) Judgement: Good judgement present (Psych) Assessment & Plan Assessment & Plan (1) Bee sting reaction: Comment: At this time there is no evidence of a secondary cellulitis there is localized edema and warmth of the left forearm. Patient drove herself to the walk-in in his therefore instructed to return home, take 50 mg of Benadryl and use ice packs at 20 minute intervals over her left forearm. Patient is instructed to go to the emergency department for any worsening symptoms. Code(s): T63.441A - Toxic effect of venom of bees, accidental (unintentional), initial encounter Qualifiers: Encounter type: initial encounter Injury intent: accidental or unintentional Qualified Code(s): T63.441A - Toxic effect of venom of bees, accidental (unintentional), initial encounter Plan: Benadryl 50 mg, ice topically, follow up in the ED for any worsening symptoms including worsening edema, decreased ROM left arm, shortness for breath, swelling of lips or tongue. Patient states that she understands the restrict p recautions and instructions to go to the emergency department for worsening symptoms.. Coding Level of Care Code Est Pt Level 3 (38051) Diagnoses Bee sting reaction, accidental or unintentional, initial encounter T63.441A Encounter type: initial encounter Injury intent: accidental or unintentional Time Spent (min) 20
--- OUTSIDE RECORDS SUMMARY | 2025-06-25 13:20 | XMS_ITS | Patient Health Record ---
Author Organization [facility] Address [address] [place] [address] Care Team Providers Care Adjuster Piano Action Name Role Phone Jazz (RETIRED) Robert HARRIS Primary Care Provide r Sergio Rodrigez Unavailable [phone] Allergies No Known Allergies Reason For Referral [...] Interpretation Negative Section Notes: Came from [facility] in [facility] Nonsmoker; no alcohol Problems Problem Type SNOMED Code ICD Code Onset Dates Problem Status W/U Status Risk Notes Problem Diverticulosis of colon (997325688) Diverticulosis of colon (K57.30) Active confirmed Problem 883666522 Positive colorectal cancer screening using Cologuard test (R19.5) Active confirmed Plan Of Treatment Future Test Test Name Order Date COLONOSCOPY 04/03/2023 Insurance Providers Payer Name Payer Address Payer Phone Subscriber Number Group Number Insured Name Patient Relationship to Insured Coverage Start Date Coverage End Date [facility] [address] [place] [phone] [id number] KAUSHIK FOREMAN Self - patient is the insured Medical (General) History Medical History History ICD Code HTN Hyperlipidemia She reports a negative colonoscopy > [address] Reynoso Denies [place],DM,CVA,Lung disease,renal dise ase Surgical History Surgery Date(Month/Year) 2 C-sections Exploratory for SBO
--- OUTSIDE RECORDS SUMMARY | 2025-06-25 13:20 | XMS_ITS | Patient Health Record ---
Author Organization [employer] [facility] Address [address] [place] [address] Support Name Relationship Address Phone KAUSHIK FOREMAN Guarantor Unknown [phone] Reason For Referral No Information Medications Medication SIG (Take, Route, Fr equency, Duration) Notes Start Date End Date Status Vivelle-Dot 0.05MG Transdermal TWICE WE EKLY; Duration: -3 [facility] 12/10/2012 Active Vivelle 0.05MG SURENDRA Transdermal TWIC E WEEKLY; Duration: -3 [facility] 10/25/2011 Active Vit D ORAL; Duration: -3 [facility] 10/25/2011 Active Provera 2.5MG 1 ORAL daily; Duration: -3 [facility] 3 Active B-Complex ORAL; Duration: -3 [facility] 10/25/2011 Active Problems Problem Type SNOMED Code ICD Code Onset Dates Problem Status W/U Status Risk Notes Problem Menopausal symptom (70071928) Symptomatic menopausal or female climacteric states (627.2) Active confirmed Diag Problem Adhesive capsulitis of shoulder (822374002) Adhesive capsulitis of shoulder (726.0) Active confirmed Diag Problem Gynecological examination normal (099235042374031) Routine gynecological examination (V72.31) Active confirmed Major Problem Screening for malignant neoplasm of colon (546387062) Special screening for malignant neoplasms, colon (V76.51) Active confirmed Major Plan Of Treatment No Information Insurance Providers Payer Name Payer Address Payer Phone Subscriber Number Group Number Insured Name Patient Relationship to Insured Coverage Start Date Coverage End Date [facility] [address] [place] [address] [id number] KAUSHIK FOREMAN Self - patient is the insured
== END 2025-06-25 13:48 | disposition home or self-care (01) ==
LOC: HO.HMCWIC 13:18
PROVIDERS: PCP Physician Assistant; Visit Provider Physician Assistant
DX: T63.441A Toxic effect of venom of bees, accidental (unintentional), initial encounter (principal)

== ENCOUNTER → 2025-06-25 13:18 | Outpatient (BNVA) | payer MEDICARE, SELFPAY | PROVIDERS: PCP Physician Assistant; Visit Provider Physician Assistant | DX: I10 Essential (primary) hypertension (principal); E78.5 Hyperlipidemia, unspecified; T63.441A Toxic effect of venom of bees, accidental (unintentional), initial encounter; Y92.9 Unspecified place or not applicable | CPT/HCPCS: 99212 ==

== ENCOUNTER 2025-08-30 08:17 | Outpatient (REF) | payer MEDICARE, SELFPAY | END 2025-08-30 08:18 | disposition home or self-care (01) | LOC: HO.MAMMO 08:17 | PROVIDERS: Visit Provider Internal Medicine | DX: Z12.31 Encounter for screening mammogram for malignant neoplasm of breast (principal) | CPT/HCPCS: 77063; 77067 ==

== ENCOUNTER → 2025-08-30 08:32 | Outpatient (BNV) | payer MEDICARE, SELFPAY | PROVIDERS: Visit Provider Internal Medicine | DX: Z12.31 Encounter for screening mammogram for malignant neoplasm of breast (principal) | CPT/HCPCS: 77063; 77067 ==

== ENCOUNTER 2025-09-06 13:01 | Outpatient (AMB) | payer MEDICARE, SELFPAY ==
--- NOTE | 2025-09-06 13:05 | A.OFFPC_ITS ---
Vital Signs 09/06/25 13:11 Height 5 ft 3 in Weight 65.771 kg BMI 25.7 BP 128/86 Blood Pressure Location Lt brachial Position Sitting Respiration 18 Pulse 87 Pulse Source Pulse Oximeter Temp 98.6 F Temp Source Temporal Artery Scan Pulse Oximetry (%) 99 Oxygen Delivery Method Room Air Intake Visit Reasons: 6 Month F/U - see comments Clinic Charge Nurse Required: No Accompanied by: Self / Same As Patient Allergies No Known Allergies Allergy (Verified 09/06/25 13:06) Medication List - Last Reconciled 09/06/25 by KUSHAL Caal amlodipine 2.5 mg PO DAILY atorvastatin 20 mg PO QPM fenofibrate 160 mg PO DAILY zolpidem 5 mg PO BEDTIME PRN Tobacco use date assessed: 09/06/25 Fall risk assessment: No Falls in past year Last assessed Fall Risk: 09/06/25 Dental Screening Dental Screen Date: 09/06/25 Did you have a dental visit in the last 12 months?: No Did you have a dental problem in the last 6 months where you did not have access to dental care?: Yes Was dental information given to patient?: Patient has dentist HPI HPI Comments History of Present Illness Details 61-year-old female with history of hyper tension, hyperlipidemia, prediabetes presents to the office for management of chronic conditions. Pre diabetes-last hemoglobin A1c 6.0% in 03/2024. Requires updated testing Hypertension-blood pressure 128/86. Has been out of amlodipine 2.5mg. Hyperlipidemia-lipid panel completed 12/2024. LDL 111. Total cholesterol 186. Compliant with fenofibrate 160 mg daily Insomnia-controlled with zolpidem Osteopenia- taking centrum Concerns: Concerns about memory. Difficulty with names Health maintenance: Last colonoscopy-05/2023. Ten year follow-up advised Last mammogram-08/2025. No malignancy detected Last DEXA scan 04/2025 showing osteopenia. FRAX 5.2% ROS: General: No fevers, malaise, unintentional weight loss HEENT: No blurred vision, diplopia. No sore throat, nasal congestion, rhinorrhea, sinus pain, ear pain Cardiovascular: No chest pain, palpitations, or leg edema Respiratory: No shortness of breath, wheezing, cough Neuro: No headaches, weakness, paresthesias. See HPI Skin: No rashes or lesions EXAM: Constitutional - Awake and Alert, No apparent distress Eyes - PERRLA, EOMI Cardiovascular - S1S2, RRR, No edema Respiratory - Normal lung expansion, Normal respiratory effort, No respiratory distress, CTA bilaterally Extremities - no calf tenderness bilaterally, no swelling Skin - Warm/Dry Neurological - Alert & oriented x3 Psychological - Appropriate affect PFSH Medical History (Updated 09/06/25 @ 13:25 by KUSHAL Caal) Osteopenia Insomnia Prediabetes Small bowel obstruction Hyperlipemia HTN (hypertension) Surgical History (Updated 05/29/23 @ 06:42 by Kyleigh Giron RN) Hx of section Hx of colonoscopy Hx of exploratory laparotomy Social History Housing: House Patient Tobacco Use Status: Never used Tobacco e-Cigarette/Vaping Use: Never Used service: No Current occupational status: retired Questionnaire AUDIT C Alcohol Use Questionnaire (AUDIT-C) 1. How often do you have a drink containing alcohol?: Never 3. How often do you have six or more drinks on one occasion?: Never Total Score: 0 Physical exam (Primary Care) Tobacco/Smoking Status: Tobacco use Status Patient Tobacco Use Status Former Tobacco user 09/06/25 13:07 Coding Level of Care Code Est Pt Level 4 (51417) Complex visit Add On G2211 Diagnoses Prediabetes R73.03 HTN (hypertension) I10 Hyperlipemia E78.5 Osteopenia M85.80 Assessment & Plan Assessment & Plan (1) Prediabetes: Code(s): R73.03 - Prediabetes Category: Medical Plan: Last hemoglobin A1c 6.0%, repeat ordered. She is counseled on healthy diet low in refined sugars and carbohydrates. Diet has predominance of rice. Recommend regular exercise. (2) HTN (hypertension): Code(s): I10 - Essential (primary) hypertension Category: Medical Plan: Blood pressure controlled, but borderline, on recheck with blood pressure 128/86. She will continue amlodipine 2.5 mg daily. Did not take her medication this morning, educated noncompliance. Low-sodium diet. (3) Hyperlipemia: Code(s): E78.5 - Hyperlipidemia, unspecified Category: Medical Plan: Lipid panel reviewed. LDL 111, goal less than 100. Advised to resume atorvastatin 20 mg daily. Continue fenofibrate 160 mg daily. Recommend diet low in saturated foods and highly processed wheels. Recommend regular exercise. (4) Osteopenia: Comment: 05/06 FRAX 5.2% Code(s): M85.80 - Other specified disorders of bone density and structure, unspecified site Category: Medical Plan Follow-up in the office in 6 months. Labs to be completed today. Will do MOCA at next visit
[2025-09-06 13:11] VITALS: BP 128/86; PULSE 87; RESP 18; TEMP 37; O2SAT 99; BMI 25.7
--- OUTSIDE RECORDS SUMMARY | 2025-09-06 16:46 | XMS_ITS | Patient Health Record ---
Author Organization [facility] Address [address] [place] [address] Support Name Relationship Address Phone KAUSHIK FOREMAN Guarantor Unknown [phone] Reason For Referral No Information Medications Medication SIG (Take, Route, Fr equency, Duration) Notes Start Date End Date Status Vivelle-Dot 0.05MG Transdermal TWICE WE EKLY; Duration: -3 [facility] 12/10/2012 Active Vivelle 0.05MG SURENDRA Transdermal TWIC E WEEKLY; Duration: -3 [facility] 10/25/2011 Active Vit D ORAL; Duration: -3 [facility] 10/25/2011 Active Provera 2.5MG 1 ORAL daily; Duration: -3 [facility] 3 Active B-Complex ORAL; Duration: -3 [facility] 10/25/2011 Active Problems Problem Type SNOMED Code ICD Code Onset Dates Problem Status W/U Status Risk Notes Problem Menopausal symptom (35577790) Symptomatic menopausal or female climacteric states (627.2) Active confirmed Diag Problem Adhesive capsulitis of shoulder (839874389) Adhesive capsulitis of shoulder (726.0) Active confirmed Diag Problem Gynecological examination normal (350375280268437) Routine gynecological examination (V72.31) Active confirmed Major Problem Screening for malignant neoplasm of colon (031766602) Special screening for malignant neoplasms, colon (V76.51) Active confirmed Major Plan Of Treatment No Information Insurance Providers Payer Name Payer Address Payer Phone Subscriber Number Group Number Insured Name Patient Relationship to Insured Coverage Start Date Coverage End Date [facility] [address] [place] [address] [id number] KAUSHIK FOREMAN Self - patient is the insured
--- OUTSIDE RECORDS SUMMARY | 2025-09-06 16:46 | XMS_ITS | Patient Health Record ---
Author Organization [facility] Address [address] [place] [address] Care Team Providers Care Supervising Appraiser Name Role Phone Jazz (RETIRED) Robert HARRIS Primary Care Provide r Sergio Rodrigez Unavailable [phone] Allergies No Known Allergies Reason For Referral No Information Medications Medication SIG (Take, Route, Frequency, Duration) Notes Start Date End Date Status Senna 8.6 MG Tablet 2 tablets at bedtime as needed Orally Once a day Active Atorvastatin Calcium 20 MG Tablet 1 tablet Orally Once a day; Duration: 30 day(s) Active amLODIPine Besylate 2.5 MG Tablet 1 tablet Orally Once a day; Duration: 30 day(s) Active Immunizations Vaccine Route Administration Date Status Comme nts Influenza Unknown 07/30/2022 Administered Social History Tobacco Use: Social History Observation Description Date Details (start date - stop date) Never Smoker NA - NA Social History Drugs/Alcohol: Social Info Question Answer Notes Alcohol Screen Did you have a drink containing alcohol in the past year? No Points 0 Interpretation Negative Tobacco Use: Social Info Question Answer Notes Tobacco Use/Smoking Patient is a nonsmoker Additional Details Category Social Info Options Details Miscellaneous: Marital status: Occupation: [employer] at [employer] Section Notes: Came from [place] in 1978 Nonsmoker; no alcohol Problems Problem Type SNOMED Code ICD Code Onset Dates Problem Status W/U Status Risk Notes Problem Diverticulosis of colon (839030550) Diverticulosis of colon (K57.30) Active confirmed Problem Abnormal feces (808864120) Positive colorectal cancer screening using Cologuard test (R19.5) Active confirmed Plan Of Treatment Future Test Test Name Order Date COLONOSCOPY 04/03/2023 Insurance Providers Payer Name Payer Address Payer Phone Subscriber Number Group Number Insured Name Patient Relationship to Insured Coverage Start Date Coverage End Date [facility] [address] [facility] [place] [phone] [id number] KAUSHIK FOREMAN Self - patient is the insured Medical (General) History Medical History History ICD Code HTN Hyperlipidemia She reports a negative colonoscopy > [address] Reynoso Denies [place],DM,CVA,Lung disease,renal dise ase Surgical History Surgery Date(Month/Year) 2 C-sections Exploratory for SBO
== END 2025-09-06 13:25 | disposition home or self-care (01) ==
LOC: HO.HMCHD 13:02
PROVIDERS: PCP Internal Medicine; Visit Provider Physician Assistant
DX: R73.03 Prediabetes (principal); I10 Essential (primary) hypertension; E78.5 Hyperlipidemia, unspecified; M85.80 Other specified disorders of bone density and structure, unspecified site

== ENCOUNTER → 2025-09-06 13:01 | Outpatient (BNVA) | payer MEDICARE, SELFPAY | PROVIDERS: PCP Internal Medicine; Visit Provider Physician Assistant | DX: R73.03 Prediabetes (principal); I10 Essential (primary) hypertension; E78.5 Hyperlipidemia, unspecified; M85.80 Other specified disorders of bone density and structure, unspecified site | CPT/HCPCS: 99212 ==